=== PATIENT | female | born 1985 | race Caucasian/White ===

== ENCOUNTER 2017-08-20 09:55 | Emergency (ER) | payer SELFPAY ==
[~2017-08-20] VITALS: Ht 162.6 cm; Wt 64.0 kg
[2017-08-20 11:12] LABS: BASOPHILS % 0.5 % (0.0-2.0); EOSINOPHILS % 0.9 % (0.0-5.0); HEMATOCRIT. 41.4 % (36.0-48.0); HEMOGLOBIN. 14.1 g/dL (12.0-16.0); LYMPHOCYTES % 27.8 % (20.0-50.0); MEAN CORPUSCULAR HEMOGLOBIN 29.8 pg (28.0-32.0); MEAN CORPUSCULAR VOLUME 87.3 fL (81.0-99.0); MEAN PLATELET VOLUME 8.9 fl (7.4-10.4); MONOCYTES % 8.1 % (2.0-8.0); NEUTROPHILS % 62.7 % (40.0-76.0); PLATELET 220 x1000/uL (130-400); RED BLOOD CELL COUNT 4.75 mill/uL (4.2-5.4); RED CELL DISTRIBUTION WIDTH 12.2 % (11.6-14.6)
[2017-08-20 11:17] LABS: CHLORIDE 107 mEq/L (98-107)
[2017-08-20 11:26] LABS: TROPONIN I < 0.02 ng/mL (0.00-0.04)
[2017-08-20 13:41] VITALS: BP 114/63
== END 2017-08-20 13:42 | disposition home or self-care (01) ==
LOC: ER 10:19
DX: R55 Syncope and collapse (principal)
CPT/HCPCS: 36415; 70450; 71045; 73502; 80053; 81025; 83735; 84484; 85025; 93005; 99285; Z7610